=== PATIENT | male | born 1995 | race American Indian/Alaskan Native ===

== ENCOUNTER 2023-11-15 23:18 | Emergency (ER) | payer OTHER ==
[2023-11-15] MEDS ORDERED: Bacitracin Oint 1 GM U/D Packet TOP ONE (23:47)
== END 2023-11-16 ==
LOC: JP.ED 23:18
DX: S01.01XA Laceration without foreign body of scalp, initial encounter (principal); F17.210 Nicotine dependence, cigarettes, uncomplicated; J45.909 Unspecified asthma, uncomplicated; Z88.2 Allergy status to sulfonamides; Y04.8XXA Assault by other bodily force, initial encounter
CPT/HCPCS: 12002; 99282; 99284